=== PATIENT | female | born 2000 | race Caucasian/White ===

== ENCOUNTER → 2020-11-15 12:50 | Outpatient (BNVA) | payer MEDICAID, SELFPAY | PROVIDERS: Family Provider Family Medicine; PCP Family Medicine; Visit Provider Obstetrics & Gynecology | DX: O23.40 Unspecified infection of urinary tract in pregnancy, unspecified trimester (principal); Z3A.00 Weeks of gestation of pregnancy not specified | CPT/HCPCS: 80307; 84315; 85025; 86803; 87086 ==

== ENCOUNTER → 2020-11-28 08:32 | Outpatient (BNVA) | payer MEDICAID, SELFPAY | PROVIDERS: Family Provider Family Medicine; PCP Family Medicine; Visit Provider Obstetrics & Gynecology | DX: Z34.90 Encounter for supervision of normal pregnancy, unspecified, unspecified trimester (principal); K21.9 Gastro-esophageal reflux disease without esophagitis | CPT/HCPCS: 81000 ==

== ENCOUNTER → 2020-12-13 12:41 | Outpatient (BNVA) | payer MEDICAID, SELFPAY | PROVIDERS: Family Provider Family Medicine; PCP Family Medicine; Visit Provider Obstetrics & Gynecology | DX: Z34.90 Encounter for supervision of normal pregnancy, unspecified, unspecified trimester (principal) | CPT/HCPCS: 81000 ==

== ENCOUNTER → 2021-01-09 08:23 | Outpatient (BNVA) | payer MEDICAID, SELFPAY | PROVIDERS: Family Provider Family Medicine; PCP Family Medicine; Visit Provider Obstetrics & Gynecology | DX: Z34.80 Encounter for supervision of other normal pregnancy, unspecified trimester (principal) | CPT/HCPCS: 81000; 81511; 82950 ==

== ENCOUNTER → 2021-02-05 09:17 | Outpatient (BNVA) | payer MEDICAID, SELFPAY | PROVIDERS: Family Provider Family Medicine; PCP Family Medicine; Visit Provider Obstetrics & Gynecology | DX: Z34.80 Encounter for supervision of other normal pregnancy, unspecified trimester (principal) | CPT/HCPCS: 81000 ==

== ENCOUNTER → 2021-03-09 11:18 | Outpatient (BNVA) | payer MEDICAID, SELFPAY | PROVIDERS: Family Provider Family Medicine; PCP Family Medicine; Visit Provider Obstetrics & Gynecology | DX: Z34.80 Encounter for supervision of other normal pregnancy, unspecified trimester (principal) | CPT/HCPCS: 81000; 82950; 85025; 86850 ==

== ENCOUNTER → 2021-03-22 08:20 | Outpatient (BNVA) | payer MEDICAID, SELFPAY | PROVIDERS: Family Provider Family Medicine; PCP Family Medicine; Visit Provider Obstetrics & Gynecology | DX: O23.40 Unspecified infection of urinary tract in pregnancy, unspecified trimester (principal); O99.321 Drug use complicating pregnancy, first trimester; F19.90 Other psychoactive substance use, unspecified, uncomplicated; Z3A.00 Weeks of gestation of pregnancy not specified | CPT/HCPCS: 81000 ==

== ENCOUNTER → 2021-04-03 08:19 | Outpatient (BNVA) | payer MEDICAID, SELFPAY | PROVIDERS: Family Provider Family Medicine; PCP Family Medicine; Visit Provider Obstetrics & Gynecology | DX: Z34.80 Encounter for supervision of other normal pregnancy, unspecified trimester (principal) | CPT/HCPCS: 81000 ==

== ENCOUNTER → 2021-04-17 13:05 | Outpatient (BNVA) | payer MEDICAID, SELFPAY | PROVIDERS: Family Provider Family Medicine; PCP Family Medicine; Visit Provider Nurse Practitioner Women's Health | DX: Z34.80 Encounter for supervision of other normal pregnancy, unspecified trimester (principal) | CPT/HCPCS: 81000 ==

== ENCOUNTER → 2021-04-30 09:28 | Outpatient (BNVA) | payer MEDICAID, SELFPAY | PROVIDERS: Family Provider Family Medicine; PCP Family Medicine; Visit Provider Obstetrics & Gynecology | DX: Z34.80 Encounter for supervision of other normal pregnancy, unspecified trimester (principal) | CPT/HCPCS: 81000; 87081 ==

== ENCOUNTER → 2021-05-07 10:16 | Outpatient (BNVA) | payer MEDICAID, SELFPAY | PROVIDERS: Family Provider Family Medicine; PCP Family Medicine; Visit Provider Obstetrics & Gynecology | DX: Z34.80 Encounter for supervision of other normal pregnancy, unspecified trimester (principal) | CPT/HCPCS: 81000 ==

== ENCOUNTER → 2021-05-14 09:24 | Outpatient (BNVA) | payer MEDICAID, SELFPAY | PROVIDERS: PCP Family Medicine; Visit Provider Obstetrics & Gynecology | DX: Z34.80 Encounter for supervision of other normal pregnancy, unspecified trimester (principal) | CPT/HCPCS: 81000 ==

== ENCOUNTER → 2021-05-17 08:42 | Outpatient (BNVA) | payer MEDICAID, SELFPAY | PROVIDERS: PCP Family Medicine; Visit Provider Obstetrics & Gynecology | DX: Z34.80 Encounter for supervision of other normal pregnancy, unspecified trimester (principal) | CPT/HCPCS: 87635 ==

== ENCOUNTER 2021-05-24 05:17 | Inpatient (IN) | payer MEDICAID, SELFPAY ==
[2021-05-24] VITALS (88 sets, daily range): BP systolic 106–216; BP diastolic 58–141; PULSE 75–151; RESP 16–20; TEMP 36.5–39.4; O2SAT 95–100; BMI 39.1
[2021-05-24 05:53] LABS: Basophils % 0.2 %; Eosinophils % 0.2 %; Hematocrit 37.4 % (37.0-47.0); Hemoglobin 11.9 g/dL (11.5-15.3); Lymphocytes # 2.5 10^3/uL (1.5-6.5); Lymphocytes % 26.6 %; Mean Corpuscular HGB Conc 31.8 g/dL (30.0-36.0); Mean Corpuscular Hemoglobin 27.5 pg (28.0-34.0); Mean Corpuscular Volume 86.6 fl (81-99); Monocytes # 0.6 10^3/uL (0.2-0.9); Monocytes % 6.8 %; Neutrophils # 6.11 10^3/uL (1.8-8.0); Neutrophils % 65.9 %; Nucleated Red Blood Cells % 0 %; Platelet Count 115 10^3/cmm (130-400); Red Blood Count 4.32 10^6/uL (4.1-5.3); Red Cell Distribution Width 13.8 % (12.1-15.1); White Blood Count 9.3 10^3/uL (4.5-13.0)
[2021-05-24 05:57] LABS: Nitrazine Paper, PH Positive
[2021-05-24 06:02] LABS: Amphetamines Screen Urine Negative (Negative); Barbiturates Screen Urine Negative (Negative); Benzodiazepines Screen Urine Negative (Negative); Cocaine Screen Urine Negative (Negative); Opiate Screen Urine Negative (Negative); PCP Screen Urine Negative (Negative); THC Screen Urine Negative (Negative)
[2021-05-24] MEDS: dextrose 5%-lactated ringers 1,000 ML 125 ML IV ×2 (11:02→19:45)
[2021-05-24] MEDS: oxytocin 30 UNIT/500 ML BAG IV (11:02)
--- NOTE | 2021-05-24 11:20 | PM.OPHPUD ---
Labor & Delivery H&P Update Date of Procedure: May 24, 2021 Date H&P Performed: 05/14/21 H&P update information: I have reviewed H&P completed within last 30 days, I have examined patient prior to procedure and Changes to prior documentation as noted here (Premature rupture of membranes) Admission Diagnosis:
[2021-05-24] MEDS: fentaNYL 50 mcg/mL INJ 2mL IVP (13:17)
[2021-05-24] MEDS: lactated ringers 1,000 ML 999 ML IV ×2 (13:19→14:18)
--- NOTE | 2021-05-24 14:28 | ANES.PROC ---
Anesthesia Procedures Procedure/Date: 05/24/21 Epidural: Time Out Performed: Yes Consents Signed: Procedure Consent and NPO Consent Consent: requested by attending/covering physician, from patient, risks and benefits reviewed and patient agrees to proceed Lumbar Level: L3-L4 Epidural position: sitting Epidural procedure: sterile prep of area, 1% lidocaine to numb the area, 18 g needle, negative for paresthesia passed, neg for paresthesia, test dose given, 1.5% xylocaine 1:200k epi (3), 0.2% Ropivacaine bolus ml (5), placed PCEA, no systemic response, sterile dressing applied, L.U.D. no apparent complications and 0.2% Ropiavacaine @ mls/hr (13) Additional Comments: SANDIE at 5 cm, threaded to 11 cm. Patient reported decreasing intensity of contraction, foot numbness (L > R).
[2021-05-24] MEDS: methylergonovine 0.2 mg/mL INJ 1 mL IM (18:32)
[2021-05-24] MEDS: miSOPROStol 200 mcg Tablet 800 MCG PR (18:32)
[2021-05-24] MEDS: lidocaine 2% INJ 20 mL INJECTION (18:33)
[2021-05-24] MEDS: ondansetron 2 mg/ML SDV 2 mL 4 MG IVP (18:57)
--- NOTE | 2021-05-24 19:08 | P.PCNOB_ITS ---
Delivery Note: Date of delivery: May 24, 2021 Pre-delivery diagnoses: PROM at 39 3/7 weeks Post-delivery diagnoses: same Procedure: Op report anesthesia: Epidural Delivering Physician: noé Estimated blood loss (mL): 200 Findings: term female in the cephalic presentation. Pre-Delivery Course: The patient was admitted for PROM. Pitocin was started and reached a maximum of 16 units. She received an epidural for pain management. She had complete cervical dilation and began pushing. Delivery: The patient had complete cervical dilation and began to push. The head delivered in the CONNOR position over an intact perineum under epidural anesthesia. A single nuchal cord was reduced at the perineum. The nose and mouth were bulb suctioned. The shoulders and body delivered atraumatically. The baby was placed onto the mother's abdomen. The cord was clamped and cut. Cord blood was obtained. The placenta delivered spontaneously. It was inspected and found to be intact. Inspection of the perineum revealed a large left periurethral laceration. And a small midline vaginal laceration that was hemostatic. The patient had uterine atony. 800 mcg of Cytotec were given orally. TXA was given. 1 dose of Methergine was given. The uterine atony resolved and the bleeding was scant after this. Estimated blood loss 200 mL. Apgars on baby were 8 at 1 minute and 9 at 5 minutes. Weight of baby is 7 pounds 10 ounces. Mother and baby were stable post delivery. Coding Level of Care Code Acute Mud Analysis Well Logging Captain for Rhea Anaya
[2021-05-24] MEDS: acetaminophen 325 mg Tablet 650 MG PO (19:38)
[2021-05-24] MEDS: ibuprofen 800 mg tablet PO (20:40)
[2021-05-25] VITALS (11 sets, daily range): BP systolic 122–142; BP diastolic 59–93; PULSE 83–108; RESP 15–17; TEMP 36.2–36.9
[2021-05-25 08:10] LABS: Hematocrit 30.3 % (37.0-47.0); Hemoglobin 9.7 g/dL (11.5-15.3); Mean Corpuscular Hemoglobin 27.7 pg (28.0-34.0); Mean Corpuscular Volume 86.6 fl (81-99); Platelet Count 106 10^3/cmm (130-400); Red Cell Distribution Width 13.6 % (12.1-15.1); White Blood Count 9.5 10^3/uL (4.5-13.0)
[2021-05-25] MEDS: ibuprofen 800 mg tablet PO ×3 (08:43→22:19)
[2021-05-25] MEDS: prenatal vitamin Capsule 1 CAP PO (08:43)
--- NOTE | 2021-05-25 09:43 | P.PN_ITS ---
Subjective Subjective: Interval history: The patient is doing well this am. Vitals/I&O/Wt Last Vital Signs Temp 97.2 F L 05/25/21 04:13 Pulse 96 05/25/21 08:42 Resp 17 05/25/21 05:17 BP 130/70 05/25/21 08:42 Pulse Ox 100 05/24/21 14:54 05/24/21 05/25/21 05/25/21 22:59 06:59 14:59 Intake Total 544.533 / 2367.450 1500 / 3867.450 Output Total 500 / 500 300 / 800 Balance 44.533 / 5795.012 2751 / 3067.450 Weight last 48 hrs Weight 235 lb Physical Exam Narrative: EXAM NARRATIVE: The patient is doing well this morning. No concerns. Const: COMMON NORMALS: no acute distress, patient oriented x3, no limitations, healthy appearing, alert and well nourished GENERAL APPEARANCE: cooperative, comfortable, well kempt and well developed ORIENTATION/CONSCIOUSNESS: Yes awake, Yes oriented to person, Yes oriented to place and Yes oriented to time Resp: COMMON NORMALS: normal respiratory effort EFFORT & INSPECTION: Yes able to speak in complete sentences GI: COMMON NORMALS: Soft to palpation and non-tender PALPATION: Yes Soft to palpation Extremity: COMMON NORMALS: no clubbing, cyanosis or edema and no calf tenderness Neuro: COMMON NORMALS: patient oriented x3 SENSORIUM/ORIENTATION: Yes alert, Yes oriented to person, Yes oriented to place and Yes oriented to time Psych: APPEARANCE: Yes well kempt Urinary Catheter Management^: Pina: Cath Placed During This Visit: yes, but has since been removed by the nurse Reason for Continuing Indwelling Catheter: Decision to DC Catheter Urinary Catheter Date of Insertion: 05/24/21 Urinary Catheter Time of Insertion: 14:55 Date Urinary Catheter Removed: 05/24/21 Time Urinary Catheter Discontinued: 17:00 Data : 05/25/21 07:57 Attestations Medical Necessity Statement*: she will be here for two midnights Coding Level of Care Code Acute Chemical Engraver for Rhea Anaya
[2021-05-26 01:35] VITALS: BP 123/84; PULSE 116; RESP 18; TEMP 36.8
[2021-05-26 03:00] VITALS: BP 115/80; PULSE 85; RESP 16; TEMP 36.6; TEMP 36.7; O2SAT 98
[2021-05-26 05:18] VITALS: BP 114/78; PULSE 85; RESP 16; TEMP 36.6; O2SAT 99
--- NOTE | 2021-05-26 06:40 | PM.DCS ---
Discharge Providers Date of Admission: 05/24/21 05:17 Date of Discharge: May 26, 2021 Attending Provider at Admission: Jhon Mahajan MD Attending Provider at Discharge: Caity Driscoll MD Primary Care Provider: Ida Edge DO Diagnoses at Discharge Discharge Diagnosis (1) state: Status: Acute Reason for Visit Reason for Visit: poss SROM Hospital Course Hospital Course The patient was admitted with PROM. Pitocin was started. She had spontaneous delivery of a term . She did well and was ready for discharge on day #2 Physical Exam Urinary Catheter Management^: Pina: Cath Placed During This Visit: yes, but has since been removed by the nurse Reason for Continuing Indwelling Catheter: Decision to DC Catheter Urinary Catheter Date of Insertion: 05/24/21 Urinary Catheter Time of Insertion: 14:55 Date Urinary Catheter Removed: 05/24/21 Time Urinary Catheter Discontinued: 17:00 Discharge Data Data Completed and Pending: Labs from last 24 hours 05/25/21 07:57 WBC 9.5 RBC 3.50 L Hgb 9.7 L Hct 30.3 L MCV 86.6 MCH 27.7 L MCHC 32.0 RDW 13.6 Plt Count 106 L MPV 13.0 H Vitals: Last Vital Signs Temp 97.8 F 05/26/21 05:18 Pulse 85 05/26/21 05:18 Resp 16 05/26/21 05:18 BP 114/78 05/26/21 05:18 Pulse Ox 99 05/26/21 05:18 Discharge Plan Discharge Patient Disposition: Home Condition: Stable Prescriptions: Continued Gummies 400 mcg-35 mg- 25 mg-5 mg tablet,chewable 1 tab PO DAILY RF: 0 docusate sodium [Colace] 100 mg capsule 100 mg PO DAILY RF: 0 famotidine [Pepcid] 40 mg tablet 40 mg PO .h.s. RF: 0 Discharge Orders: Discharge Order (Routine); Ordered 05/26/21 Ordered By: Caity Driscoll Patient Instructions: Opioid Safety Discharge Attestations Time Spent in Discharge Care*: less than 30 min Quality Metrics Clinical Quality Measures During this hospital stay, did patient experience: None Coding Level of Care Code Acute Chg FW DC note Diagnoses state Z39.2
[2021-05-26] MEDS: prenatal vitamin Capsule 1 CAP PO (08:51)
[2021-05-26] MEDS: docusate sodium 100 mg Capsule PO (08:51)
[2021-05-26] MEDS: ibuprofen 800 mg tablet PO (08:52)
[2021-05-26 10:54] VITALS: BP 121/81; PULSE 102; RESP 17; TEMP 36.9; O2SAT 99
--- NOTE | 2021-05-28 08:17 | ANE.PACU2 ---
Inpatient post-anesthesia follow up: Airway intact: Yes Vital signs: Temperature 98.4 F Pulse Rate 102 Respiratory Rate 17 Blood Pressure 121/81 Pulse Oximetry 99 Oxygen Delivery Me thod Room Air Oxygen Flow Rate Fraction of Inspir ed Oxygen Hydration adequate: Yes Nausea and vomiting: No Pain level: 2 Mental status: Baseline
== END 2021-05-26 12:09 | disposition home or self-care (01) | DRG 768 ==
LOC: OPOB 05:19 → OBGYN 05:19
PROVIDERS: Obstetrics & Gynecology; Admitting Provider Obstetrics & Gynecology; PCP Family Medicine; Visit Provider Obstetrics & Gynecology
DX: O42.92 Full-term premature rupture of membranes, unspecified as to length of time between rupture and onset of labor (principal); Z37.0 Single live birth; O71.4 Obstetric high vaginal laceration alone; O62.2 Other uterine inertia; O69.81X0 Labor and delivery complicated by cord around neck, without compression, not applicable or unspecified; Z3A.39 39 weeks gestation of pregnancy
CPT/HCPCS: 36415; 51702; 59025; 59409; 80306; 83986; 85025; 85027; 86900; 96372; 96374; 96375; 98960; 99211; J2210; J2405; J2795; J3010

== ENCOUNTER → 2021-07-27 10:48 | Outpatient (BNVA) | payer MEDICAID, SELFPAY | PROVIDERS: PCP Family Medicine; Visit Provider Obstetrics & Gynecology | DX: R39.9 Unspecified symptoms and signs involving the genitourinary system (principal); N89.8 Other specified noninflammatory disorders of vagina | CPT/HCPCS: 81000; 87086; 87481; 87512; 87798; 87799 ==

== ENCOUNTER → 2021-11-05 10:34 | Outpatient (BNVA) | payer MEDICAID, SELFPAY | PROVIDERS: PCP Family Medicine; Visit Provider Obstetrics & Gynecology | DX: Z12.4 Encounter for screening for malignant neoplasm of cervix (principal) | CPT/HCPCS: 88175 ==

== ENCOUNTER → 2022-06-24 13:34 | Outpatient (BNVA) | payer MEDICAID, SELFPAY | PROVIDERS: PCP Family Medicine; Visit Provider Family Medicine | DX: L73.2 Hidradenitis suppurativa (principal); Z23 Encounter for immunization | CPT/HCPCS: 80048 ==

== ENCOUNTER → 2022-09-10 17:37 | Outpatient (BNVA) | payer MEDICAID, SELFPAY | PROVIDERS: PCP Family Medicine; Visit Provider Registered Nurse Neonatal Intensive Care | DX: N39.0 Urinary tract infection, site not specified (principal); R39.9 Unspecified symptoms and signs involving the genitourinary system; Z20.2 Contact with and (suspected) exposure to infections with a predominantly sexual mode of transmission | CPT/HCPCS: 81000; 87086; 87491; 87591; 87661 ==

== ENCOUNTER → 2022-09-27 11:31 | Outpatient (BNVA) | payer MEDICAID, SELFPAY | PROVIDERS: PCP Family Medicine; Visit Provider Family Medicine | DX: L73.2 Hidradenitis suppurativa (principal) | CPT/HCPCS: 80048 ==

== ENCOUNTER → 2023-03-07 10:10 | Outpatient (BNVA) | payer MEDICAID, SELFPAY | PROVIDERS: PCP Family Medicine; Visit Provider Obstetrics & Gynecology | DX: N39.0 Urinary tract infection, site not specified (principal); R82.90 Unspecified abnormal findings in urine | CPT/HCPCS: 81000; 87086 ==

== ENCOUNTER → 2023-03-27 16:02 | Outpatient (BNVA) | payer MEDICAID, SELFPAY | PROVIDERS: PCP Family Medicine; Visit Provider Obstetrics & Gynecology | DX: L73.2 Hidradenitis suppurativa (principal) | CPT/HCPCS: 80048 ==

== ENCOUNTER → 2023-06-16 14:30 | Outpatient (BNVA) | payer MEDICAID, SELFPAY | PROVIDERS: PCP Family Medicine; Visit Provider Nurse Practitioner Women's Health | DX: N93.9 Abnormal uterine and vaginal bleeding, unspecified (principal); Z30.9 Encounter for contraceptive management, unspecified | CPT/HCPCS: 88175 ==

== ENCOUNTER → 2024-02-19 08:44 | Outpatient (BNVA) | payer SELFPAY | PROVIDERS: PCP Family Medicine; Visit Provider Nurse Practitioner Family | DX: R31.9 Hematuria, unspecified (principal) | CPT/HCPCS: 81000 ==

== ENCOUNTER 2024-02-23 13:55 | Emergency (ER) | payer SELFPAY ==
[2024-02-23 14:02] VITALS: BP 128/88; PULSE 110; RESP 16; TEMP 36.7; O2SAT 99
[2024-02-23 14:48] LABS: Basophils % 0.3 %; Eosinophils % 0.1 %; Hematocrit 43.9 % (36-47); Lymphocytes # 1.8 10^3/uL (0.8-4.8); Lymphocytes % 26.5 %; Mean Corpuscular Hemoglobin 28.7 pg (27-33); Mean Corpuscular Volume 86.8 fl (85-98); Monocytes # 0.3 10^3/uL (0.2-0.9); Monocytes % 4.9 %; Neutrophils # 4.55 10^3/uL (1.8-7.7); Neutrophils % 68.1 %; Nucleated Red Blood Cells % 0 %; Platelet Count 167 10^3/cmm (157-399); Red Blood Count 5.06 10^6/uL (3.85-5.65); Red Cell Distribution Width 12.6 % (12.1-15.1); White Blood Count 6.69 10^3/uL (3.29-11.43)
[2024-02-23 15:03] LABS: HCG Quantitative 58.52 mIU/mL
[2024-02-23 15:14] LABS: Alanine Aminotransferase 15 U/L (0-33); Albumin Level 4.6 g/dL (3.5-5.2); Alkaline Phosphatase 80 U/L (35-105); Anion Gap 14.2 (5-19); Aspartate Amino Transferase 27 U/L (0-32); Blood Urea Nitrogen 15 mg/dL (6-20); Calcium 9.4 mg/dL (8.5-10.5); Carbon Dioxide 27 mmol/L (22-29); Chloride 101 mmol/L (98-107); Creatinine Clr Calc Pharmacy 131.9267; Globulin 3.1 g/dL (1.3-4.6); Glomerular Filtration Rate 103.7 mL/min (90-130); Glucose 91 mg/dL (65-115); Osmolality Calculated 286 mOsm/kg (285-295); Potassium 4.2 mmol/L (3.5-5.1); Sodium 138 mmol/L (136-145); Total Bilirubin 0.3 mg/dL (0.15-1.2); Total Protein 7.7 g/dL (6.6-8.7)
[2024-02-23 17:10] VITALS: BP 117/83; PULSE 97; RESP 16; O2SAT 97
--- NOTE | 2024-02-23 17:10 | USR_ITS ---
PROCEDURE INFORMATION: Exam: US , Transvaginal Exam date and time: 02/23/2024 5:16 PM Age: 23 years old Clinical indication: Lmp or gestational age (in weeks): Na; Other: Positive preg test; Patient HX: Hcg quant unknown as of exam time; Additional info: Rlq pain, 2-3 weeks preg by [facility] LABS AND CLINICAL REPORTS: Last menstrual period start date: 01/30/2024 Estimated due date (Established): 11/05/2024 TECHNIQUE: Imaging protocol: Real-time transvaginal obstetrical ultrasound of the maternal pelvis with image documentation. Transvaginal imaging was used for better evaluation of the fetus, adnexa, and/or cervix. COMPARISON: US OB follow up [facility] 05/07/2021 10:15 AM FINDINGS: Gestation: The uterus is normal in size and appearance. There is no evidence of intrauterine . Endometrial stripe measures 8 mm. MATERNAL: Right ovary/adnexa: A 1.8 cm simple cyst involves the right ovary. Good Doppler flow noted. Left ovary/adnexa: The left ovary is normal in size and appearance. Good Doppler flow noted. US/US OB transvaginal [id number] IMPRESSION: 1. No evidence of 2. Small right ovarian cyst
--- NOTE | 2024-02-23 17:10 | ED_ITS ---
HPI - 2 General: Chief complaint: Vaginal Bleeding Stated complaint: vaginal bleeding, right side pain, 2 weeks preg Time Seen by Provider: 02/23/24 17:00 Source: patient Mode of arrival: ambulatory Limitations: no limitations History of Present Illness: Patient is a 23-year-old female presenting to the emergency department complaining of vaginal bleeding onset 3-4 days. Patient noticed the bleeding at the end of last week, went to the urgent care and states that she was sent home and told she was fine. She states she took a home test which was positive, and later this was confirmed at the health department by another test. The bleeding has been constant since she noticed it, and she is starting to develop some right-sided/suprapubic abdominal pain. This is her third , and she is A1. She states that the health department sent her to the emergency department to rule out an ectopic . She has no history of ectopic. She is not reporting any other symptoms at this time, which includes no palpitations, syncope, nausea, or vomiting. She notes that the pain is overall intermittent, though it will come in waves of varying pain. She comments that the pains feel like labor pain. She does not report any specific exacerbating factor, but does state that the pain will improve when she sits up. She does still have her appendix. She states that the bleeding has been constant, but overall has been in small quantities and will vary from bright red to dark red/black. MD Complaint: abdominal pain and vaginal bleeding Onset (ago): day(s) Pain Consistency: intermittent Location: pelvis and abdomen Severity: moderate Quality: Cramping Relieving factors: other (Sitting up) Exacerbating factors: none Vaginal discharge: none Vaginal bleeding: light Patient : Yes Number of Weeks : 2-3 OB History - Previous Pregnancies: miscarriage care: none Associated symptoms: Reports abdominal pain; Deny dysuria, headache(s), nausea, vaginal discharge or vomiting Related Data: : 3 Para: 1 Total number of abortions (spontaneous and elective): 1 Review of Systems 2 General: Reports: 10 or more systems reviewed and unremarkable except in HPI and below Const: Denies: fever(s), chills, change in appetite, change in weight or diaphoresis ENMT: Denies: throat pain or hoarseness Card: Denies: chest pain, palpitations or lightheadedness Resp: Denies: dyspnea, productive cough or wheezing GI: Reports: abdominal pain; Denies: nausea, vomiting, diarrhea, constipation, bloating, change in stool character or hematochezia : Reports: vaginal bleeding and other (); Denies: flank pain, difficulty voiding, dysuria, urinary frequency, urinary urgency, hematuria or vaginal discharge Musc: Denies: neck pain or back pain Skin/Breast: Denies: rash or new lesions Neuro: Denies: headache(s) or dizziness PFSH ED 2 PFSH: Medical History No pertinent past medical history neghx: htn,dm,thyroid,dvt/pe,herpes ---denies partner with herpes PCP: none Surgical History No pertinent past surgical history Family History Grandmother Breast cancer Paternal--dx age unknown Denies family history of Colon cancer Ovarian cancer Diabetes Heart disease Hypercholesteremia Hypertension Uterine cancer Thyroid disease Stroke Social History Substance/Drug Use: never Female Reproductive History: : 3 Physical Exam 2 Const: COMMON NORMALS: no acute distress, average body habitus, patient oriented x3, no limitations, healthy appearing, alert and well nourished G ENERAL APPEARANCE: cooperative and comfortable ORIENTATION/CONSCIOUSNESS: Yes awake HENMT: COMMON NORMALS: normocephalic, atraumatic, hearing grossly normal bilaterally, external ears normal, Normal external nose present, Normal nasal mucous membranes and turbinates present and moist oral mucous membranes HEAD & SCALP: normocephalic and atraumatic NOSE: Normal external nose present and Normal nasal mucous membranes and turbinates present EXTERNAL EAR: Yes external ears normal Eye: COMMON NORMALS: Equal, round and reactive pupils present, EOMs intact bilaterally, conjunctivae normal and normal visual kurtz by confrontation C ONJUNCTIVA: Yes conjunctivae normal PUPIL: Yes Equal, round and reactive pupils present Neck/C-Spine: COMMON NORMALS: full ROM, supple, no meningeal signs and no JVD Resp: COMMON NORMALS: normal respiratory effort, No retractions, No use of accessory muscles and clear to auscultation bilaterally AUSCULTATION: clear to auscultation bilaterally, no crackles, no rales, no rhonchi and no wheezes Cardio: COMMON NORMALS: no JVD, regular rate, regular rhythm, S1 normal heart sound present, S2 normal heart sound present, No gallops present (Cardio), No clicks present (Cardio), No murmurs present (Cardio), No rub (Cardio) and Peripheral pulses 2+ throughout RATE: regular rate RHYTHM: regular rhythm HEART SOUNDS: S1 normal heart sound present and S2 normal heart sound present PERIPHERAL PULSES: Peripheral pulses 2+ throughout GI: COMMON NORMALS: Normal to inspection, nondistended, normoactive bowel sounds present, Soft to palpation, No hepatosplenomegaly present and no masses INSPECTION: Yes normal to inspection AUSCULTATION: Yes normoactive bowel sounds PALPATION: Yes Soft to palpation, Yes Tenderness to palpation present (GI) (Mild tenderness to palpation over the right lower/suprapubic region), No Guarding due to palpation present (GI), No Rigid due to palpation and Yes No hepatosplenomegaly present RECTAL EXAM: deferred : COMMON NORMALS: Yes no CVA tenderness BLADDER/KIDNEY EXAM: Yes no CVA tenderness Back/Pelvis: COMMON NORMALS: no CVA tenderness Extremity: COMMON NORMALS: normal to inspection and full ROM Neuro: COMMON NORMALS: patient oriented x3, moves all extremities, no focal motor deficits and no sensory deficits noted SENSORIUM/ORIENTATION: Yes alert MENINGEAL SIGNS: Yes no meningeal signs Psych: COMMON NORMALS: mental status grossly normal, cooperative and speech normal SPEECH: Yes normal speech Skin: COMMON NORMALS: no rashes or lesions noted GENERAL SKIN EXAM: no rashes or lesions noted Procedures Perimortem Number of Weeks : 2-3 Course 2 Vital Signs: Vital signs: Vital Signs Temperature 98.0 F 02/23/24 14:02 Pulse Rate 90 02/23/24 18:00 Respiratory Rate 16 02/23/24 17:10 Blood Pressure 117/83 02/23/24 17:10 Pulse Oximetry 95 02/23/24 18:00 Oxygen Delivery Me thod Room Air 02/23/24 18:00 MDM - OB/Uterine Contractions Medical Decision Making Patient presents for few days of vaginal bleeding associated with some new onset of pain. She states she is positive by confirmed home test, and positive test at health department. Here in the emergency department she does have a serum quantitative value of 58, correlating with 2 to 3 weeks of gestation. To rule out ectopic a transvaginal ultrasound was ordered that did not demonstrate any signs of this, and gestational age too early for any evaluation. Due to very low hCG and negative ultrasound findings, ectopic suspicion is very low at this point. All of her blood work was normal and her urinalysis was unremarkable, did show some blood likely from patient's vaginal bleeding. She is clinically stable and thus no need for further workup. The emergency department. Instead, she will follow-up with her OB/primary care next week for reevaluation. I did inform patient's of strict return precautions including any worsening of her bleeding or worsening of abdominal pain. She agrees with this and will be discharged home at this time. Care of this patient is discussed with supervising ED physician, Dr. Reynoso, who agrees with disposition of patient. Lab Data 02/23/24 14:29 02/23/24 14:29 Radiology Impressions Transvaginal US 02/23/24 17:10 IMPRESSION: 1. No evidence of 2. Small right ovarian cyst Laboratory Results WBC 6.69 10^3/uL (3.29-11.43) 02/23/24 14:29 RBC 5.06 10^6/uL (3.85-5.65) 02/23/24 14:29 Hgb 14.50 g/dL (11.27-16.99) 02/23/24 14:29 Hct 43.9 % (36-47) 02/23/24 14:29 MCV 86.8 fl (85-98) 02/23/24 14:29 MCH 28.7 pg (27-33) 02/23/24 14:29 MCHC 33.0 g/dL (30-55) 02/23/24 14:29 RDW 12.6 % (12.1-15.1) 02/23/24 14:29 Plt Count 167 10^3/cmm (157-399) 02/23/24 14:29 MPV 12.0 fL (7.4-10.4) H 02/23/24 14:29 Neut % (Auto) 68.1 % 02/23/24 14:29 Lymph % (Auto) 26.5 % 02/23/24 14:29 Wise % (Auto) 4.9 % 02/23/24 14:29 Eos % (Auto) 0.1 % 02/23/24 14:29 Baso % (Auto) 0.3 % 02/23/24 14:29 Neut # (Auto) 4.55 10^3/uL (1.8-7.7) 02/23/24 14:29 Lymph # (Auto) 1.8 10^3/uL (0.8-4.8) 02/23/24 14:29 Wise # (Auto) 0.3 10^3/uL (0.2-0.9) 02/23/24 14: Eos # (Auto) 0.0 10^3/uL (0.0-0.8) 02/23/24 14: Baso # (Auto) 0.0 10^3/uL (0.0-0.1) 02/23/24 14:29 Nucleated RBC % (auto) 0 % 02/23/24 14: Nucleated RBCs # 0.0 /100WBC 02/23/24 14:29 Sodium 138 mmol/L (136-145) 02/23/24 14:29 Potassium 4.2 mmol/L (3.5-5.1) 02/23/24 14:29 Chloride 101 mmol/L (98-107) 02/23/24 14:29 Carbon Dioxide 27 mmol/L (22-29) 02/23/24 14:29 Anion Gap 14.2 (5-19) 02/23/24 14:29 BUN 15 mg/dL (6-20) 02/23/24 14:29 Creatinine 0.7 mg/dL (0.5-0.9) 02/23/24 14:29 GFR Calculation 103.7 mL/min (90-130) 02/23/24 14:29 Glucose 91 mg/dL (65-115) 02/23/24 14:29 Calculated Osmolality 286 mOsm/kg (285-295) 02/23/24 14:29 Calcium 9.4 mg/dL (8.5-10.5) 02/23/24 14:29 Total Bilirubin 0.3 mg/dL (0.15-1.2) 02/23/24 14:29 AST 27 U/L (0-32) 02/23/24 14:29 ALT 15 U/L (0-33) 02/23/24 14:29 Alkaline Phosphatase 80 U/L (35-105) 02/23/24 14:29 C-Reactive Protein 3.5 mg/L (0.0-4.9) 02/23/24 14:29 Total Protein 7.7 g/dL (6.6-8.7) 02/23/24 14: Albumin 4.6 g/dL (3.5-5.2) 02/23/24 14: Globulin 3.1 g/dL (1.3-4.6) 02/23/24 14:29 Ser , Semi-Qnt 58.52 mIU/mL 02/23/24 14:29 Urine Color Yellow (Yellow) 02/23/24 15:35 Urine Appearance Slightly cloudy (CLEAR) 02/23/24 15:35 Urine pH 7 (5-7) 02/23/24 15:35 Ur Specific [place]iman 1.015 (1.005-1.030) 02/23/24 15:35 Urine Protein Neg (Negative) 02/23/24 15:35 Urine Glucose (UA) Norm (Normal) 02/23/24 15:35 Urine Ketones Negative (Negative) 02/23/24 15:35 Urine Blood 3+ (Negative) H 02/23/24 15:35 Urine Nitrate Negative (Negative) 02/23/24 15:35 Urine Bilirubin Neg (Negative) 02/23/24 15:35 Urine Urobilinogen Norm mg/dL (Negative) 02/23/24 15:35 Ur Leukocyte Esterase Negative (Negative) 02/23/24 15:35 Urine RBC 0-4 /hpf (0-2) H 02/23/24 15:35 Urine WBC 0-4 /hpf (0-5) H 02/23/24 15:35 Ur Squamous Epith Cells 10-15 /hpf (0-5) H 02/23/24 15:35 Amorphous Sediment 1+ /hpf 02/23/24 15:35 Urine Bacteria 1+ /hpf (NONE) H 02/23/24 15:35 All radiology interpretation(s) finalized by discharge Discharge Plan Discharge Condition: Stable Prescriptions: No Action fluconazole 150 mg tablet 150 mg PO Q3D 0 Days Qty: 2 0RF famotidine [Pepcid] 40 mg tablet 40 mg PO .h.s. Qty: 30 12RF spironolactone 100 mg tablet 100 mg PO QAM Qty: 90 1RF Referrals: Ida Edge DO [Primary Care Provider] - Coding Level of Care Code ED Central Office Equipment Installer for Rhea Anaya
[2024-02-23 17:36] LABS: C Reactive Protein 3.5 mg/L (0.0-4.9)
[2024-02-23 17:46] LABS: Specific Gravity, Urine 1.015 (1.005-1.030); Urine Appearance Slightly Cloudy (CLEAR); Urine Color Yellow (Yellow); pH Urine 7 (5-7)
[2024-02-23 17:47] LABS: Add Urine Culture? No; Add Urine Microscopic? YES; Amorphous Sediment Urine 1+ /hpf; Bacteria Urine 1+ /hpf; Bilirubin Urine Neg (Negative); Blood Urine 3+ (Negative); Glucose Urine UA Norm (Normal); Ketones Urine Negative (Negative); Leukocyte Esterase Urine Negative (Negative); Nitrate Urine Negative (Negative); Protein Urine Neg (Negative); RBC Urine 0-4 /hpf (0-2); Urobilinogen Urine Norm (Negative); WBC Urine 0-4 /hpf (0-5)
[2024-02-23 18:00] VITALS: PULSE 90; O2SAT 95
== END 2024-02-23 18:17 | disposition home or self-care (01) ==
PROVIDERS: Physician Assistant; Emergency Provider Physician Assistant; PCP Family Medicine
DX: O20.9 Hemorrhage in early pregnancy, unspecified (principal); Z3A.01 Less than 8 weeks gestation of pregnancy
CPT/HCPCS: 36415; 76817; 80053; 81001; 84702; 85025; 86140; 99284

== ENCOUNTER → 2024-02-25 09:11 | Outpatient (BNVA) | payer MEDICAID, SELFPAY | PROVIDERS: PCP Family Medicine; Visit Provider Nurse Practitioner Women's Health | DX: N73.0 Acute parametritis and pelvic cellulitis (principal); N92.1 Excessive and frequent menstruation with irregular cycle; Z97.5 Presence of (intrauterine) contraceptive device; O46.90 Antepartum hemorrhage, unspecified, unspecified trimester; O20.0 Threatened abortion | CPT/HCPCS: 84315; 84702; 85025; 86850; 86900 ==

== ENCOUNTER → 2024-03-01 08:03 | Outpatient (BNVA) | payer MEDICAID, SELFPAY | PROVIDERS: PCP Family Medicine; Visit Provider Nurse Practitioner Women's Health | DX: O20.0 Threatened abortion (principal); Z3A.00 Weeks of gestation of pregnancy not specified | CPT/HCPCS: 84702 ==

== ENCOUNTER → 2024-04-20 07:56 | Outpatient (BNVA) | payer MEDICAID, SELFPAY | PROVIDERS: PCP Family Medicine; Visit Provider Nurse Practitioner Women's Health | DX: Z34.90 Encounter for supervision of normal pregnancy, unspecified, unspecified trimester (principal); N92.6 Irregular menstruation, unspecified | CPT/HCPCS: 81025; 84702; 86850; 86900 ==

== ENCOUNTER → 2024-05-04 09:32 | Outpatient (BNVA) | payer BC, SELFPAY | PROVIDERS: Visit Provider Nurse Practitioner Women's Health | DX: Z36.87 Encounter for antenatal screening for uncertain dates (principal); Z3A.01 Less than 8 weeks gestation of pregnancy | CPT/HCPCS: 76801 ==

== ENCOUNTER → 2024-05-26 08:15 | Outpatient (BNVA) | payer BC, SELFPAY | PROVIDERS: Visit Provider Nurse Practitioner Women's Health | DX: Z34.90 Encounter for supervision of normal pregnancy, unspecified, unspecified trimester (principal) | CPT/HCPCS: 80307; 84315; 84439; 84443; 84481; 85025; 86592; 86762; 86803; 86850; 86900; 87086; 87340; 87491; 87591; 87806 ==

== ENCOUNTER → 2024-06-08 13:23 | Outpatient (BNVA) | payer BC, MEDICAID, SELFPAY | PROVIDERS: Visit Provider Obstetrics & Gynecology | DX: Z34.90 Encounter for supervision of normal pregnancy, unspecified, unspecified trimester (principal) | CPT/HCPCS: 84315; 87624 ==

== ENCOUNTER → 2024-07-05 08:20 | Outpatient (BNVA) | payer BC, MEDICAID, SELFPAY | PROVIDERS: Visit Provider Nurse Practitioner Women's Health | DX: Z34.90 Encounter for supervision of normal pregnancy, unspecified, unspecified trimester (principal); Z3A.11 11 weeks gestation of pregnancy; J02.9 Acute pharyngitis, unspecified | CPT/HCPCS: 80053; 82962; 84315; 85025; 87071; 87880 ==

== ENCOUNTER 2024-08-02 12:54 | Emergency (ER) | payer BC, MEDICAID, SELFPAY ==
[2024-08-02 13:10] VITALS: BP 118/75; PULSE 101; RESP 18; TEMP 36.7; O2SAT 97
--- NOTE | 2024-08-02 13:22 | ED_ITS ---
HPI - Skin/Abscess/Foreign Bdy General: Chief complaint: Skin/Abscess/Foreign Body Stated complaint: left hand burn Time Seen by Provider: 08/02/24 13:18 Related Data Home Medications Medication Instructions Recorded Confirmed PNV 153-FA 400 mcg-om3 35 mg-dha tab PO DAILY 05/26/24 07/05/24 25 mg-epa 5 mg-fish oil chew tablet ( Gummies) Previous Rx's Medication Instructions Recorded azithromycin 250 mg tablet See Rx Instructions PO .COMPLEX #6 07/05/24 (Zithromax Z-Javier) tabs Allergies Allergy/AdvReac Type Severity Reaction Status Date / Time Penicillins Allergy vomitting, Verified 07/05/24 18:11 sweating PFSH ED PFSH: Medical History No pertinent past medical history neghx: htn,dm,thyroid,dvt/pe,herpes ---denies partner with herpes PCP: none Surgical History No pertinent past surgical history Family History Grandmother Breast cancer Paternal--dx age unknown Denies family history of Colon cancer Ovarian cancer Diabetes Heart disease Hypercholesteremia Hypertension Uterine cancer Thyroid disease Stroke Social History Smoking and tobacco/nicotine status: tobacco/nicotine user, details unknown Substance/Drug Use: never Course Vital Signs: Vital signs: Vital Signs Temperature 98.1 F 08/02/24 13:10 Pulse Rate 101 H 08/02/24 13:10 Respiratory Rate 18 08/02/24 13:10 Blood Pressure 118/75 08/02/24 13:10 Pulse Oximetry 97 08/02/24 13:10 Oxygen Delivery Me thod Room Air 08/02/24 13:10 Discharge Plan Discharge Condition: Stable Prescriptions: No Action azithromycin [Zithromax Z-Javier] 250 mg tablet See Rx Instructions PO .COMPLEX Qty: 6 0RF Rx Instructions: For 250 mg dose pack: take 500 mg today (day 1), then 250 mg for 4 days (days 2-5) PO Gummies 400 mcg-35 mg- 25 mg-5 mg tablet,chewable PO DAILY Coding Level of Care Code ED Higher Level Teaching Assistant for Rhea Anaya
--- NOTE | 2024-08-02 13:33 | ED_ITS ---
HPI - Burn/Smoke Inhalation 2 General: Chief complaint: Skin/Abscess/Foreign Body Stated complaint: left hand burn Time Seen by Provider: 08/02/24 13:18 Source: patient Mode of arrival: ambulatory Limitations: no limitations History of Present Illness: Patient is a 24-year-old female presents to ED today with a complaint of a burn to her left hand that she sustained after pulling a hot skaggs from the oven. Tetanus is up-to-date. MD Complaint: burn Onset (ago): hour(s) Smoke Inhalation: none Place: home Location - Extremities: Left: hand Severity: mild Associated symptoms: Reports no associated symptoms Related Data Home Medications Medication Instructions Recorded Confirmed PNV 153-FA 400 mcg-om3 35 mg-dha tab PO DAILY 05/26/24 07/05/24 25 mg-epa 5 mg-fish oil chew tablet ( Gummies) Previous Rx's Medication Instructions Recorded azithromycin 250 mg tablet See Rx Instructions PO .COMPLEX #6 07/05/24 (Zithromax Z-Javier) tabs Allergies Allergy/AdvReac Type Severity Reaction Status Date / Time Penicillins Allergy vomitting, Verified 07/05/24 18:11 sweating Review of Systems 2 Musc: Reports: extremity pain Skin/Breast: Reports: other (burn to palm of L hand) Neuro: Denies: numbness in extremities PFSH ED 2 PFSH: Medical History No pertinent past medical history neghx: htn,dm,thyroid,dvt/pe,herpes ---denies partner with herpes PCP: none Surgical History No pertinent past surgical history Family History Grandmother Breast cancer Paternal--dx age unknown Denies family history of Colon cancer Ovarian cancer Diabetes Heart disease Hypercholesteremia Hypertension Uterine cancer Thyroid disease Stroke Social History Smoking and tobacco/nicotine status: tobacco/nicotine user, details unknown Substance/Drug Use: never Physical Exam 2 Const: COMMON NORMALS: no acute distress, average body habitus, patient oriented x3, no limitations, healthy appearing, alert and well nourished Extremity: COMMON NORMALS: full ROM and capillary refill normal GENERAL: Y es normal exam except as noted Hand Left Front: 1. 1st degree burn; small area of superficial second degree with ruptured blister mid palm surrounded by first degree; first degree to palmar finger 2. Neuro: COMMON NORMALS: patient oriented x3, moves all extremities, no focal motor deficits and no sensory deficits noted SENSORIUM/ORIENTATION: Yes alert Skin: NARRATIVE SKIN EXAM: see above Course 2 Vital Signs: Vital signs: Vital Signs Temperature 98.1 F 08/02/24 13:10 Pulse Rate 101 H 08/02/24 13:10 Respiratory Rate 18 08/02/24 13:10 Blood Pressure 118/75 08/02/24 13:10 Pulse Oximetry 97 08/02/24 13:10 Oxygen Delivery Me thod Room Air 08/02/24 13:10 MDM - Burn/Smoke Inhalation Medical Decision Making Discussed conservative therapies with cool water/cool rag, acetaminophen (pt so no NSAIDS), topical lidocaine, OTC antibiotic ointment, infection precautions. Medical Records I reviewed the patient's medical records. No radiology studies performed this visit Discharge Plan Discharge Patient Disposition: Home Clinical Impression: Burn of left hand Qualifiers: Encounter type: initial encounter Burn of hand location: palm Burn degree: s uperficial (1st degree) Qualified Code(s): T23.152A - Burn of first degree of left palm, initial encounter Condition: Stable Prescriptions: No Action azithromycin [Zithromax Z-Javier] 250 mg tablet See Rx Instructions PO .COMPLEX Qty: 6 0RF Rx Instructions: For 250 mg dose pack: take 500 mg today (day 1), then 250 mg for 4 days (days 2-5) PO Gummies 400 mcg-35 mg- 25 mg-5 mg tablet,chewable PO DAILY Discharge Orders: Discharge ED (Routine); Ordered 08/02/24 Ordered By: Valeria Lowery Patient Instructions: Superficial Burn (DC), Second-Degree Burn (ED) Coding Level of Care Code ED Butt Welder for Rhea Anaya
[2024-08-02 13:46] VITALS: BP 135/86; PULSE 101; RESP 16; O2SAT 97
== END 2024-08-02 13:47 | disposition home or self-care (01) ==
PROVIDERS: Emergency Provider Physician Assistant
DX: T23.152A Burn of first degree of left palm, initial encounter (principal); X19.XXXA Contact with other heat and hot substances, initial encounter; Z72.0 Tobacco use
CPT/HCPCS: 99281

== ENCOUNTER 2024-09-23 13:49 | Oncology outpatient (recurring) (ONCR) | payer BC, MEDICAID, SELFPAY ==
[2024-09-23] MEDS: rho(d) immune globulin 1,500 unit Syringe 1500 UNIT IM (15:05)
--- NOTE | 2024-09-23 15:11 | PC.NURSE ---
Patients blood type verified by Shaniqua Stein prior to administration. Pt verbalized her blood type as well as need for Rhogam injection.
[2024-09-23 15:12] VITALS: BP 112/77; PULSE 132; RESP 16; TEMP 36.9; O2SAT 98
== END 2024-10-15 23:59 | disposition home or self-care (01) ==
LOC: ONCMED 13:49
PROVIDERS: Visit Provider Family Medicine
DX: Z67.90 Unspecified blood type, Rh positive (principal); Z79.899 Other long term (current) drug therapy
CPT/HCPCS: 96401; J2790

== ENCOUNTER 2024-12-08 15:36 | Inpatient (IN) | payer BC, MEDICAID, SELFPAY ==
[2024-12-08] VITALS (29 sets, daily range): BP systolic 99–144; BP diastolic 55–87; PULSE 83–122; RESP 16–17; TEMP 35.9–36.8; O2SAT 98–100; BMI 36.6
[2024-12-08 13:22] LABS: Actim Prom Negative
[2024-12-08 14:57] LABS: Basophils % 0.2 %; Eosinophils % 0.1 %; Lymphocytes # 2.1 10^3/uL (0.8-4.8); Lymphocytes % 21.5 %; Mean Corpuscular HGB Conc 31.8 g/dL (30-55); Mean Corpuscular Hemoglobin 26.9 pg (27-33); Mean Corpuscular Volume 84.6 fl (85-98); Mean Platelet Volume 12.7 fL (7.4-10.4); Monocytes # 0.5 10^3/uL (0.2-0.9); Monocytes % 5.5 %; Neutrophils # 6.98 10^3/uL (1.8-7.7); Neutrophils % 72.3 %; Nucleated Red Blood Cells % 0 %; Platelet Count 149 10^3/cmm (157-399); Red Blood Count 4.49 10^6/uL (3.85-5.65); Red Cell Distribution Width 13.2 % (12.1-15.1); White Blood Count 9.66 10^3/uL (3.29-11.43)
--- NOTE | 2024-12-08 16:19 | PM.OPHPUD ---
Labor & Delivery H&P Update Date of Procedure: December 08, 2024 Date H&P Performed: 12/06/24 Changes to previous documentation: The patient cervix is now 6 cm dilated and about 80% effaced. Admission Diagnosis: 24-year-old 4 para 1-0-2-1 at 38 weeks and 6 days presenting with contractions, vaginal discharge and a cervix at 6 cm dilated, and changing. Planned procedure: Vaginal delivery Other information: The patient is a pleasant healthy female who presented to the hospital today because she was concerned that her water broke. She had been having's wet underwear consistently over the last 2 days. Upon arrival to hospital, nitrazine was inconclusive, and an active PROM was negative. Regardless she was noted to have some change in her cervix. Given the advanced age of her dilation as well as the favorability of her cervix, the other with her change, we elected to admit the patient for vaginal delivery. The patient's has been otherwise unremarkable. Her blood type is O-. Her antibody screen is negative. She is GBS negative. She is allergic to penicillin. Her glucose screen was negative. The remainder of her infectious disease profile is within normal limits. Related Problem List Diagnoses (1) 38 weeks gestation of : (2) Rh negative status during : A&P Assessment and plan (1) 38 weeks gestation of : We discussed options for ways we can move forward including Pitocin, amniotomy, or doing nothing. She chose to have an amniotomy performed. Status: Acute (2) Rh negative status during : Status: Acute PDMP PDMP Reviewed: Not Reviewed
[2024-12-08] MEDS: lactated ringers 1,000 ML 999 ML IV ×2 (17:12→18:29)
[2024-12-08] MEDS: ROPivacaine syringe 100 MG/50 ML SYRINGE 10 MG EPIDURAL (18:12)
--- NOTE | 2024-12-08 18:21 | ANES.PREANE2 ---
Pre-Anesthetic Assessment Height/Weight: Height 1.65 m Weight 99.79 kg Temp Pulse Resp BP Pulse Ox O2 Del Method 96.8 F L 110 H 17 99/67 100 Room Air 12/08/24 17:17 12/08/24 18:13 12/08/24 14:37 12/08/24 18:13 12/08/24 18:13 12/08/24 15:25 Preop Diagnosis: intrauterine Epidural Familial anesthetic complications: none Was Beta Karrie taken within 24 hours: N/A Was Clonidine taken within 24 hours: N/A Last Intake: 08:00 Social No alcohol and No tobacco Exam alert, oriented x 3, clear to auscultation bilaterally and regular rate & rhythm Airway Mallampati: Class III History/ROS No significant history except as noted Pulmonary None reported CV/HEM None reported None reported Hepatic None reported GI None reported Metabolic None reported Musc/skel None reported Neuropsych None reported Anesthetic Plan ASA status: 2 Anesthesia: Regional (specify below) (Epidural) Risk of > 500 ml blood loss (7ml/kg in children): No Medications/Allergies Home Medications ?Medication ?Instructions ?Recorded ?Confirmed ?Last Taken ?Type PNV 153-FA 400 mcg-om3 35 mg-dha 1 tab PO DAILY 05/26/24 12/08/24 Unknown History 25 mg-epa 5 mg-fish oil chew tablet ( Gummies) Allergies Allergy/AdvReac Type Severity Reaction Status Date / Time Penicillins Allergy vomitting, Verified 12/01/24 08:52 sweating Current Medications Generic Name Dose Route Start Last Admin Trade Name Freq PRN Reason Stop Dose Admin Lactated Ringer's 1,000 mls @ 999 mls/hr 12/08/24 17:04 12/08/24 17:12 Lactated Ringers IV 999 mls/hr .Q1H1M PRN Administration See label comments PFSH Anesthesia Medical History No pertinent past medical history neghx: htn,dm,thyroid,dvt/pe,herpes ---denies partner with herpes PCP: none Surgical History No pertinent past surgical history Family History Grandmother Breast cancer Paternal--dx age unknown Denies family history of Colon cancer Ovarian cancer Diabetes Heart disease Hypercholesteremia Hypertension Uterine cancer Thyroid disease Stroke Social History Smoking and tobacco/nicotine status: tobacco/nicotine user, details unknown Substance/Drug Use: never Female Reproductive History : 4 Data Anesthesia 12/08/24 14:45 Short CBC 12/08/24 Range/Units 14:45 WBC 9.66 (3.29-11.43) 10^3/uL Hgb 12.10 (11.27-16.99) g/dL Hct 38.0 (36-47) % MCV 84.6 L (85-98) fl Plt Count 149 L (157-399) 10^3/cmm Neut % (Auto) 72.3 % Neut # (Auto) 6.98 (1.8-7.7) 10^3/uL Blood Bank 12/08/24 14:45 Blood Type O Negative Rho(D) Type Rh negative Antibody Screen Negative Cardiac Studies: No Data to Display Anesthesia Procedures Epidural Time Out Performed: Yes Consents Signed: Procedure Consent Consent: from patient, risks and benefits reviewed and patient agrees to proceed Lumbar Level: L3-L4 Epidural position: sitting Epidural procedure: sterile prep of area, 1% lidocaine to numb the area, 18 g needle, negative for paresthesia passed, neg for paresthesia, test dose given, 1.5% xylocaine 1:200k epi (5ML), 0.2% Ropivacaine bolus ml (6mL), placed PCEA, no systemic response, sterile dressing applied, L.U.D. no apparent complications and 0.2% Ropiavacaine @ mls/hr (10) Additional Comments: SANDIE 6cm
[2024-12-08] MEDS: oxytocin 30 UNIT/500 ML BAG 600 UNIT IV (18:24)
--- NOTE | 2024-12-08 18:48 | PM.DELIVERY ---
Delivery Note: Date of delivery: December 08, 2024 Pre-delivery diagnoses: 24-year-old 4 para 1-0-2-1 at 38 weeks estimated gestational age presenting in active labor Post-delivery diagnoses: Status post spontaneous vaginal delivery Procedure: Spontaneous vaginal delivery Delivering Physician: Elton Singh Estimated blood loss (mL): 75 Pre-Delivery Course: The patient presented to the hospital at 6 cm dilated and making cervical change. An amniotomy was performed. An epidural was attempted just prior to delivery. Delivery: DELIVERY: The patient progressed to complete without difficulty. She delivered a male with a weight of 8 pounds 14 ounces with Apgars of 8, 9. The baby was delivered from the LIA position and placed on the mother's abdomen. The cord was then clamped and cut. There was no nuchal cord. There was no meconium. The placenta and 3 vessel cord were delivered intact shortly thereafter. The perineum and vaginal vault were carefully examined. A single laceration was noted on the left anterior labia minora. It was not bleeding and no repair was required. Both the mother and the baby were in stable condition. Post-Delivery Status: Good History History History 4 Term 1 0 Miscarriages/Ectopic 2 Living Children 1 A&P Assessment and plan (1) Spontaneous vaginal delivery: I anticipate routine care. (2) 38 weeks gestation of : PDMP PDMP Reviewed: Not Reviewed Coding Level of Care Code Acute Code for Chg Fwd Diagnoses Spontaneous vaginal delivery O80 38 weeks gestation of Z3A.38
[2024-12-08] MEDS: ibuprofen 800 mg tablet PO (22:18)
[2024-12-08] MEDS: benzocaine-menthol 78 gm Canister 1 SPRAY TOPICAL (22:19)
[2024-12-09 00:15] VITALS: BP 128/72; PULSE 87; RESP 16; TEMP 36.7; O2SAT 100
[2024-12-09 02:50] VITALS: BP 116/75; PULSE 89; RESP 16; TEMP 36.8; O2SAT 98
[2024-12-09 07:03] LABS: Hematocrit 33.7 % (36-47); Mean Corpuscular HGB Conc 32.3 g/dL (30-55); Mean Corpuscular Hemoglobin 27.4 pg (27-33); Mean Corpuscular Volume 84.7 fl (85-98); Mean Platelet Volume 12.4 fL (7.4-10.4); Platelet Count 113 10^3/cmm (157-399); Red Blood Count 3.98 10^6/uL (3.85-5.65); Red Cell Distribution Width 13.2 % (12.1-15.1); White Blood Count 11.19 10^3/uL (3.29-11.43)
--- NOTE | 2024-12-09 08:16 | ANE.PACU2 ---
Inpatient post-anesthesia follow up: Airway intact: Yes Vital signs: Temperature 98.3 F Pulse Rate 89 Respiratory Rate 16 Blood Pressure 116/75 Pulse Oximetry 98 Oxygen Delivery Me thod Room Air Oxygen Flow Rate Fraction of Inspir ed Oxygen Hydration adequate: Yes Nausea and vomiting: No Pain level: 1 Mental status: Baseline Epidural Start/End: Epidural Start Date: 12/08/24 Epidural Start Time: 17:54 Epidural End Date: 12/08/24 Epidural End Time: 18:58
[2024-12-09] MEDS: ibuprofen 800 mg tablet PO ×2 (09:32→17:12)
[2024-12-09] MEDS: PRENATAL VIT NO.130/IRON/FOLIC 1 EACH TABLET PO (09:32)
[2024-12-09] MEDS: docusate sodium 100 mg Capsule PO ×2 (09:33→17:13)
[2024-12-09 10:00] VITALS: BP 111/70; PULSE 103; RESP 18; TEMP 36.3
--- NOTE | 2024-12-09 12:00 | PM.OBGYDC ---
Discharge Providers FILM EDITOR Date of Admission: 12/08/24 15:36 Date of Discharge: 12/09/24 Attending Provider at Admission: Elton Singh MD Attending Provider at Discharge: Elton Singh MD Diagnoses at Discharge Discharge Diagnosis (1) Spontaneous vaginal delivery: Status: Acute (2) 38 weeks gestation of : Status: Acute Reason for Visit Reason for Visit: poss SROM Hospital Course Hospital Course The patient presented to the hospital in active labor. An amniotomy was performed. She progressed to complete and had an unremarkable delivery of a healthy appearing male infant. She had a single labia minora tear on her left side. She breast-fed well. Her bleeding was within normal limits. Her pain is been well-controlled. There have been no concerns. Information Peripartum Data: Delivery Method: Vaginal Physical Exam Narrative: The patient is alert. She appears comfortable. Her heart has a regular rate and rhythm with no murmurs appreciated. Lungs are clear to auscultation bilaterally. Her fundus is firm and below the umbilicus. History History History 4 Term 1 0 Miscarriages/Ectopic 2 Living Children 1 Discharge Data Studies Completed and Pending Laboratory Results WBC 11.19 10^3/uL (3.29-11.43) 12/09/24 06:58 RBC 3.98 10^6/uL (3.85-5.65) 12/09/24 06:58 Hgb 10.90 g/dL (11.27-16.99) L 12/09/24 06:58 Hct 33.7 % (36-47) L 12/09/24 06:58 MCV 84.7 fl (85-98) L 12/09/24 06:58 MCH 27.4 pg (27-33) 12/09/24 06:58 MCHC 32.3 g/dL (30-55) 12/09/24 06:58 RDW 13.2 % (12.1-15.1) 12/09/24 06:58 Plt Count 113 10^3/cmm (157-399) L 12/09/24 06:58 MPV 12.4 fL (7.4-10.4) H 12/09/24 06:58 Neut % (Auto) 72.3 % 12/08/24 14:45 Lymph % (Auto) 21.5 % 12/08/24 14:45 [place] % (Auto) 5.5 % 12/08/24 14:45 Eos % (Auto) 0.1 % 12/08/24 14:45 Baso % (Auto) 0.2 % 12/08/24 14:45 Neut # (Auto) 6.98 10^3/uL (1.8-7.7) 12/08/24 14:45 Lymph # (Auto) 2.1 10^3/uL (0.8-4.8) 12/08/24 14:45 [place] # (Auto) 0.5 10^3/uL (0.2-0.9) 12/08/24 14:45 Eos # (Auto) 0.0 10^3/uL (0.0-0.8) 12/08/24 14:45 Baso # (Auto) 0.0 10^3/uL (0.0-0.1) 12/08/24 14:45 Nucleated RBC % (auto) 0 % 12/08/24 14:45 Nucleated RBCs # 0.0 /100WBC 12/08/24 14:45 Insulin-like GF I Negative 12/08/24 13:10 Blood Type O Negative 12/08/24 14:45 Rho(D) Type Rh negative 12/08/24 14:45 Antibody Screen Negative 12/08/24 14:45 Vitals Last Vital Signs Temp 97.4 F L 12/09/24 10:00 Pulse 103 H 12/09/24 10:00 Resp 18 12/09/24 10:00 BP 111/70 12/09/24 10:00 Pulse Ox 98 12/09/24 02:50 O2 Del Method Room Air 12/09/24 02:50 Results Labs OB ([facility]): Obstetrics US 09/21/24 Blood Type O Negative 12/08/24 Antibody Screen Negative 12/08/24 Hct 33.7 % (36-47) L 12/09/24 Hgb 10.90 g/dL (11.27-16.99) L 12/09/24 Rho(D) Type Rh negative 12/08/24 Plt Count 113 10^3/cmm (157-399) L 12/09/24 Hep Bs Antigen Non-reactive (Nonreactive) 05/26/24 Hepatitis C Antibody Non-reactive (Nonreactive) 05/26/24 Rubella IgG Antibody 63.8 IU/mL (0.0-10.0) H 05/26/24 RPR Nonreactive (Nonreactive) 05/26/24 HIV 1&2 Ab & HIV 1 Ag Non-reactive (Non-Reactiv) 05/26/24 TSH 2.21 uIU/mL (0.27-4.20) 05/26/24 Free T4 0.97 ng/dL (0.82-1.77) 05/26/24 C.trachomatis RNA (TMA) Not detected (NOT DETECTED) 05/26/24 N.gonorrhoeae RNA (TMA) Not detected (NOT DETECTED) 05/26/24 T. vaginalis Amp RNA Not detected (NOT DETECTED) 05/26/24 Chlamydia/GC Comment See note 05/26/24 Ser , Semi-Qnt 56038.00 mIU/mL 04/20/24 HCG, Qual Positive (Negative) H 04/20/24 Urine Opiates Screen Negative ng/mL (Negative) 05/26/24 Ur Barbiturates Screen Negative ng/mL (Negative) 05/26/24 Ur Phencyclidine Scrn Negative ng/mL (Negative) 05/26/24 Ur Amphetamines Screen Negative ng/mL (Negative) 05/26/24 U Benzodiazepines Scrn Negative ng/mL (Negative) 05/26/24 Urine Cocaine Screen Negative ng/mL (Negative) 05/26/24 U Marijuana (THC) Screen Positive ng/mL (Negative) H 05/26/24 Micro Urine Specimen 05/26/24 Pap Smear Interpret See note 06/08/24 Discharge Plan Discharge Patient Disposition: Home Condition: Stable Prescriptions: New ibuprofen 800 mg Tablet 800 mg PO TID Qty: 45 0RF Continued Gummies 400 mcg-35 mg- 25 mg-5 mg tablet,chewable 1 tab PO DAILY Discharge Orders: Discharge Order (Routine); Ordered 12/09/24 Ordered By: Elton Singh Referrals: Elton Singh MD [Physician] - 6 Weeks Discharge Diet: Usual diet Discharge Activity: Limit activity as instructed Patient Instructions: Opioid Safety Discharge Attestations FILM EDITOR Time Spent in Discharge Care*: less than 30 min Coding Level of Care Code Acute Code for Chg Fwd Diagnoses Spontaneous vaginal delivery O80 38 weeks gestation of Z3A.38
[2024-12-09 15:00] VITALS: BP 122/75; PULSE 108; RESP 18; TEMP 36.7
[2024-12-09 19:00] VITALS: BP 132/82; PULSE 103; RESP 16; TEMP 36.7; O2SAT 98
== END 2024-12-09 19:10 | disposition home or self-care (01) | DRG 807 ==
LOC: OPOB 15:37 → OBGYN 15:37
PROVIDERS: Admitting Provider Family Medicine; Visit Provider Family Medicine
DX: O80 Encounter for full-term uncomplicated delivery (principal); Z37.0 Single live birth; Z3A.38 38 weeks gestation of pregnancy
CPT/HCPCS: 36415; 59025; 59409; 83986; 84112; 85025; 85027; 86850; 86900; 99211; J2590; J2795; J7120; J9999

== ENCOUNTER 2025-03-18 05:13 | Emergency (ER) | payer BC, MEDICAID, SELFPAY ==
[2025-03-18 05:23] VITALS: BP 143/81; PULSE 77; RESP 16; TEMP 36.6; O2SAT 99
--- NOTE | 2025-03-18 05:31 | USR_ITS ---
PROCEDURE INFORMATION: Exam: US Pelvis, Transvaginal, Non-Obstetric Exam date and time: 03/18/2025 6:37 AM Age: 24 years old Clinical indication: Other: Bleeding post 3 months; Additional info: Dub TECHNIQUE: Imaging protocol: Real-time transvaginal pelvic (non-obstetric) ultrasound with image documentation. Transvaginal imaging was used for better evaluation of the endometrium, adnexa, and/or cervix. COMPARISON: US OB >= 14 weeks fetus [id number] 08/02/2024 8:10 AM FINDINGS: Uterus: Uterus is normal. Endometrial stripe is normal. No evidence of retained products of conception. Right ovary/adnexa: Normal. No mass. Normal ovarian blood flow on color Doppler. Left ovary/adnexa: Normal. No mass. Normal ovarian blood flow on color Doppler. Urinary bladder: Urinary bladder is limited. Intraperitoneal space: No free fluid. US/US transvaginal [id number] IMPRESSION: The findings are normal.
--- NOTE | 2025-03-18 05:35 | W.ED.FEMALGU ---
Documented by User: Delmer Oshea MD 03/18/25 05:37 HPI - Female Genitourinary General: Chief complaint: Urogenital-Female Stated complaint: post delivery 3 Months heavy bleeding still Time Seen by Provider: 03/18/25 05:15 History of Present Illness: 24-year-old female who is 3 months who presents emerged part with complaint of lower abdominal cramping and pain and vaginal bleeding. Patient states that she has been having vaginal bleeding for the past 3 months ever since she had her baby. She states that she did see her [employer] today and had a pelvic exam and this did not show anything abnormal so an ultrasound was scheduled for later in the month but the pain and bleeding became so bad this morning that she decided to come into the ER. She states she did have dysmenorrhea prior to her first . Related Data Home Medications ?Medication ?Instructions ?Recorded ?Confirmed PNV 153-FA 400 mcg-om3 35 mg-dha 1 tab PO DAILY 05/26/24 03/18/25 25 mg-epa 5 mg-fish oil chew tablet ( Gummies) Allergies Allergy/AdvReac Type Severity Reaction Status Date / Time Penicillins Allergy vomitting, Verified 12/01/24 08:52 sweating PFSH ED PFSH: Medical History No pertinent past medical history neghx: htn,dm,thyroid,dvt/pe,herpes ---denies partner with herpes PCP: none Surgical History No pertinent past surgical history Family History Grandmother Breast cancer Paternal--dx age unknown Denies family history of Colon cancer Ovarian cancer Diabetes Heart disease Hypercholesteremia Hypertension Uterine cancer Thyroid disease Stroke Social History Smoking and tobacco/nicotine status: tobacco/nicotine user, details unknown Substance/Drug Use: never Physical Exam Neck/C-Spine: COMMON NORMALS: no JVD Resp: COMMON NORMALS: normal respiratory effort, No retractions, No use of accessory muscles, clear to auscultation bilaterally and percussion normal AUSCULTATION: clear to auscultation bilaterally PERCUSSION: percussion normal Cardio: COMMON NORMALS: no JVD, regular rate, regular rhythm, S1 normal heart sound present, S2 normal heart sound present, No gallops present (Cardio), No clicks present (Cardio), No murmurs present (Cardio), No rub (Cardio) and Peripheral pulses 2+ throughout RATE: regular rate RHYTHM: regular rhythm HEART SOUNDS: S1 normal heart sound present and S2 normal heart sound present PERIPHERAL PULSES: Peripheral pulses 2+ throughout GI: OTHER: Diffuse lower abdominal tenderness Course Vital Signs: Vital signs: Vital Signs Temperature 97.9 F 03/18/25 05:23 Pulse Rate 87 03/18/25 09:09 Respiratory Rate 17 03/18/25 05:59 Blood Pressure 103/88 03/18/25 09:09 Pulse Oximetry 97 03/18/25 09:09 Oxygen Delivery Me thod Room Air 03/18/25 05:23 MDM - Female Lab Data 03/18/25 05:36 03/18/25 05:36 Radiology Impressions Transvaginal US 03/18/25 05:31 IMPRESSION: The findings are normal. Laboratory Results WBC 4.27 10^3/uL (3.29-11.43) 03/18/25 05:36 RBC 4.76 10^6/uL (3.85-5.65) 03/18/25 05:36 Hgb 13.30 g/dL (11.27-16.99) 03/18/25 05:36 Hct 40.7 % (36-47) 03/18/25 05:36 MCV 85.5 fl (85-98) 03/18/25 05:36 MCH 27.9 pg (27-33) 03/18/25 05:36 MCHC 32.7 g/dL (30-55) 03/18/25 05:36 RDW 13.1 % (12.1-15.1) 03/18/25 05:36 Plt Count 138 10^3/cmm (157-399) L 03/18/25 05:36 MPV 11.5 fL (7.4-10.4) H 03/18/25 05:36 Neut % (Auto) 49.4 % 03/18/25 05:36 Lymph % (Auto) 40.5 % 03/18/25 05:36 Elmore % (Auto) 8.7 % 03/18/25 05:36 Eos % (Auto) 0.7 % 03/18/25 05:36 Baso % (Auto) 0.5 % 03/18/25 05:36 Neut # (Auto) 2.11 10^3/uL (1.8-7.7) 03/18/25 05:36 Lymph # (Auto) 1.7 10^3/uL (0.8-4.8) 03/18/25 05:36 Elmore # (Auto) 0.4 10^3/uL (0.2-0.9) 03/18/25 05:36 Eos # (Auto) 0.0 10^3/uL (0.0-0.8) 03/18/25 05:36 Baso # (Auto) 0.0 10^3/uL (0.0-0.1) 03/18/25 05:36 Nucleated RBC % (auto) 0 % 03/18/25 05:36 Nucleated RBCs # 0.0 /100WBC 03/18/25 05:36 Sodium 139 mmol/L (136-145) 03/18/25 05:36 Potassium 4.0 mmol/L (3.5-5.1) 03/18/25 05:36 Chloride 105 mmol/L (98-107) 03/18/25 05:36 Carbon Dioxide 23 mmol/L (22-29) 03/18/25 05:36 Anion Gap 15.0 (5-19) 03/18/25 05:36 BUN 20 mg/dL (6-20) 03/18/25 05:36 Creatinine 0.7 mg/dL (0.5-0.9) 03/18/25 05:36 GFR Calculation 102.8 mL/min (90-130) 03/18/25 05:36 Glucose 95 mg/dL (65-115) 03/18/25 05:36 Calculated Osmolality 290 mOsm/kg (285-295) 03/18/25 05:36 Calcium 9.0 mg/dL (8.5-10.5) 03/18/25 05:36 Total Bilirubin 0.5 mg/dL (0.15-1.2) 03/18/25 05:36 AST 35 U/L (0-32) H 03/18/25 05:36 ALT 23 U/L (0-33) 03/18/25 05:36 Alkaline Phosphatase 91 U/L (35-105) 03/18/25 05:36 Total Protein 7.3 g/dL (6.6-8.7) 03/18/25 05:36 Albumin 4.3 g/dL (3.5-5.2) 03/18/25 05:36 Globulin 3.0 g/dL (1.3-4.6) 03/18/25 05:36 HCG, Qual Negative (Negative) 03/18/25 05:59 Urine Color Yellow (Yellow) 03/18/25 05:59 Urine Appearance Cloudy (CLEAR) A 03/18/25 05:59 Urine pH 5.5 (5-7) 03/18/25 05:59 Ur Specific Ferdinand 1.033 (1.005-1.030) H 03/18/25 05:59 Urine Protein 1+ (Negative) A 03/18/25 05:59 Urine Glucose (UA) Negative (Normal) 03/18/25 05:59 Urine Ketones Trace (Negative) 03/18/25 05:59 Urine Blood 3+ (Negative) A 03/18/25 05:59 Urine Nitrate Negative (Negative) 03/18/25 05:59 Urine Bilirubin Negative (Negative) 03/18/25 05:59 Urine Urobilinogen 1.0 mg/dL (Negative) 03/18/25 05:59 Ur Leukocyte Esterase 1+ (Negative) A 03/18/25 05:59 Urine RBC 51-100 /hpf (0-2) H 03/18/25 05:59 Urine WBC 21-50 /hpf (0-5) H 03/18/25 05:59 Ur Squamous Epith Cells 11-20 /hpf (0-5) H 03/18/25 05:59 Amorphous Sediment Not Reportable 03/18/25 05:59 Urine Bacteria Trace /hpf (NONE) 03/18/25 05:59 Hyaline Casts 0.40 /lpf 03/18/25 05:59 Discharge Plan Discharge Patient Disposition: Home Clinical Impression: Menometrorrhagia Condition: Stable Prescriptions: No Action Gummies 400 mcg-35 mg- 25 mg-5 mg tablet,chewable 1 tab PO DAILY Discharge Orders: Discharge ED (Routine); Ordered 03/18/25 Ordered By: Karan Bull Discharge Diet: Usual diet Discharge Activity: Resume usual activity Patient Instructions: Opioid Safety, Pain Management, Patient Portal & Deon Instructions Activity Restrictions/Additional Instructions: Thank you for choosing [facility] for your healthcare needs today. It is very important that you follow up as instructed or that you return to the Emergency Department should you have concerns or if your condition changes or worsens in any way. You were seen in the emergency room with complaints of persistent vaginal bleeding. Your hemoglobin is stable at 13.3, other lab work did not show any clinically significant abnormalities. Ultrasound did not show any significant abnormalities either. We discussed different treatment options you opted to wait until the new control that your prior doctor had sent in arrives at the pharmacy. Recommend further follow-up with your primary care doctor or vp respiratory. Print Language: Pashto Sign Out Sign Out Data: Patient Sign Out occurred on 03/18/25 at 06:15. Patient's care was discussed, and care was transferred from Delmer Oshea MD to Karan Bull DO. Coding Level of Care Code ED Videotape Recording Engineer for Chg Fwd Documented by User: Karan Bull DO 03/18/25 17:38 HPI - Female Genitourinary General: Chief complaint: Urogenital-Female Stated complaint: post delivery 3 Months heavy bleeding still Time Seen by Provider: 03/18/25 05:15 Related Data Home Medications ?Medication ?Instructions ?Recorded ?Confirmed PNV 153-FA 400 mcg-om3 35 mg-dha 1 tab PO DAILY 05/26/24 03/18/25 25 mg-epa 5 mg-fish oil chew tablet ( Gummies) Allergies Allergy/AdvReac Type Severity Reaction Status Date / Time Penicillins Allergy vomitting, Verified 12/01/24 08:52 sweating PFSH ED PFSH: Medical History No pertinent past medical history neghx: htn,dm,thyroid,dvt/pe,herpes ---denies partner with herpes PCP: none Surgical History No pertinent past surgical history Family History Grandmother Breast cancer Paternal--dx age unknown Denies family history of Colon cancer Ovarian cancer Diabetes Heart disease Hypercholesteremia Hypertension Uterine cancer Thyroid disease Stroke Social History Smoking and tobacco/nicotine status: tobacco/nicotine user, details unknown Substance/Drug Use: never Course Vital Signs: Vital signs: Vital Signs Temperature 97.9 F 03/18/25 05:23 Pulse Rate 87 03/18/25 09:09 Respiratory Rate 17 03/18/25 05:59 Blood Pressure 103/88 03/18/25 09:09 Pulse Oximetry 97 03/18/25 09:09 Oxygen Delivery Me thod Room Air 03/18/25 05:23 MDM - Female Medical Decision Making CT the pelvis is unremarkable. Discussed the results with the patient her hemoglobin is stable. She has a couple different treatment options at this point we can continue on her current course and changed to oral contraceptive her doctor called in for her next week when the pharmacy gets it the other option be to do a progesterone withdrawal bleed. After discussion of the patient she opted to wait until the new prescription came into the pharmacy. Patient's not having significant bleeding now or she is otherwise stable will discharge home follow-up with her primary care or vp respiratory. Lab Data 03/18/25 05:36 03/18/25 05:36 Radiology Impressions Transvaginal US 03/18/25 05:31 IMPRESSION: The findings are normal. Laboratory Results WBC 4.27 10^3/uL (3.29-11.43) 03/18/25 05:36 RBC 4.76 10^6/uL (3.85-5.65) 03/18/25 05:36 Hgb 13.30 g/dL (11.27-16.99) 03/18/25 05:36 Hct 40.7 % (36-47) 03/18/25 05:36 MCV 85.5 fl (85-98) 03/18/25 05:36 MCH 27.9 pg (27-33) 03/18/25 05:36 MCHC 32.7 g/dL (30-55) 03/18/25 05:36 RDW 13.1 % (12.1-15.1) 03/18/25 05:36 Plt Count 138 10^3/cmm (157-399) L 03/18/25 05:36 MPV 11.5 fL (7.4-10.4) H 03/18/25 05:36 Neut % (Auto) 49.4 % 03/18/25 05:36 Lymph % (Auto) 40.5 % 03/18/25 05:36 Elmore % (Auto) 8.7 % 03/18/25 05:36 Eos % (Auto) 0.7 % 03/18/25 05:36 Baso % (Auto) 0.5 % 03/18/25 05:36 Neut # (Auto) 2.11 10^3/uL (1.8-7.7) 03/18/25 05:36 Lymph # (Auto) 1.7 10^3/uL (0.8-4.8) 03/18/25 05:36 Elmore # (Auto) 0.4 10^3/uL (0.2-0.9) 03/18/25 05:36 Eos # (Auto) 0.0 10^3/uL (0.0-0.8) 03/18/25 05:36 Baso # (Auto) 0.0 10^3/uL (0.0-0.1) 03/18/25 05:36 Nucleated RBC % (auto) 0 % 03/18/25 05:36 Nucleated RBCs # 0.0 /100WBC 03/18/25 05:36 Sodium 139 mmol/L (136-145) 03/18/25 05:36 Potassium 4.0 mmol/L (3.5-5.1) 03/18/25 05:36 Chloride 105 mmol/L (98-107) 03/18/25 05:36 Carbon Dioxide 23 mmol/L (22-29) 03/18/25 05:36 Anion Gap 15.0 (5-19) 03/18/25 05:36 BUN 20 mg/dL (6-20) 03/18/25 05:36 Creatinine 0.7 mg/dL (0.5-0.9) 03/18/25 05:36 GFR Calculation 102.8 mL/min (90-130) 03/18/25 05:36 Glucose 95 mg/dL (65-115) 03/18/25 05:36 Calculated Osmolality 290 mOsm/kg (285-295) 03/18/25 05:36 Calcium 9.0 mg/dL (8.5-10.5) 03/18/25 05:36 Total Bilirubin 0.5 mg/dL (0.15-1.2) 03/18/25 05:36 AST 35 U/L (0-32) H 03/18/25 05:36 ALT 23 U/L (0-33) 03/18/25 05:36 Alkaline Phosphatase 91 U/L (35-105) 03/18/25 05:36 Total Protein 7.3 g/dL (6.6-8.7) 03/18/25 05:36 Albumin 4.3 g/dL (3.5-5.2) 03/18/25 05:36 Globulin 3.0 g/dL (1.3-4.6) 03/18/25 05:36 HCG, Qual Negative (Negative) 03/18/25 05:59 Urine Color Yellow (Yellow) 03/18/25 05:59 Urine Appearance Cloudy (CLEAR) A 03/18/25 05:59 Urine pH 5.5 (5-7) 03/18/25 05:59 Ur Specific Ferdinand 1.033 (1.005-1.030) H 03/18/25 05:59 Urine Protein 1+ (Negative) A 03/18/25 05:59 Urine Glucose (UA) Negative (Normal) 03/18/25 05:59 Urine Ketones Trace (Negative) 03/18/25 05:59 Urine Blood 3+ (Negative) A 03/18/25 05:59 Urine Nitrate Negative (Negative) 03/18/25 05:59 Urine Bilirubin Negative (Negative) 03/18/25 05:59 Urine Urobilinogen 1.0 mg/dL (Negative) 03/18/25 05:59 Ur Leukocyte Esterase 1+ (Negative) A 03/18/25 05:59 Urine RBC 51-100 /hpf (0-2) H 03/18/25 05:59 Urine WBC 21-50 /hpf (0-5) H 03/18/25 05:59 Ur Squamous Epith Cells 11-20 /hpf (0-5) H 03/18/25 05:59 Amorphous Sediment Not Reportable 03/18/25 05:59 Urine Bacteria Trace /hpf (NONE) 03/18/25 05:59 Hyaline Casts 0.40 /lpf 03/18/25 05:59 All radiology interpretation(s) finalized by discharge Discharge Plan Discharge Patient Disposition: Home Clinical Impression: Menometrorrhagia Condition: Stable Prescriptions: No Action Gummies 400 mcg-35 mg- 25 mg-5 mg tablet,chewable 1 tab PO DAILY Discharge Orders: Discharge ED (Routine); Ordered 03/18/25 Ordered By: Karan Bull Discharge Diet: Usual diet Discharge Activity: Resume usual activity Patient Instructions: Opioid Safety, Pain Management, Patient Portal & Deon Instructions Activity Restrictions/Additional Instructions: Thank you for choosing [facility] for your healthcare needs today. It is very important that you follow up as instructed or that you return to the Emergency Department should you have concerns or if your condition changes or worsens in any way. You were seen in the emergency room with complaints of persistent vaginal bleeding. Your hemoglobin is stable at 13.3, other lab work did not show any clinically significant abnormalities. Ultrasound did not show any significant abnormalities either. We discussed different treatment options you opted to wait until the new control that your prior doctor had sent in arrives at the pharmacy. Recommend further follow-up with your primary care doctor or vp respiratory. Print Language: Pashto Sign Out Sign Out Data: Patient Sign Out occurred on 03/18/25 at 06:15. Patient's care was discussed, and care was transferred from Delmer Oshea MD to Karan Bull DO. Coding Level of Care Code ED Videotape Recording Engineer for Rhea Anaya
[2025-03-18 05:45] LABS: Hematocrit 40.7 % (36-47); Hemoglobin 13.30 g/dL (11.27-16.99); Mean Corpuscular HGB Conc 32.7 g/dL (30-55); Mean Corpuscular Hemoglobin 27.9 pg (27-33); Mean Corpuscular Volume 85.5 fl (85-98); Nucleated Red Blood Cells % 0 %; Platelet Count 138 10^3/cmm (157-399); Red Blood Count 4.76 10^6/uL (3.85-5.65); White Blood Count 4.27 10^3/uL (3.29-11.43)
[2025-03-18 05:59] VITALS: BP 143/81; PULSE 90; RESP 17; O2SAT 99
[2025-03-18 05:59] LABS: Alanine Aminotransferase 23 U/L (0-33); Albumin Level 4.3 g/dL (3.5-5.2); Alkaline Phosphatase 91 U/L (35-105); Anion Gap 15.0 (5-19); Aspartate Amino Transferase 35 U/L (0-32); Blood Urea Nitrogen 20 mg/dL (6-20); Calcium 9.0 mg/dL (8.5-10.5); Carbon Dioxide 23 mmol/L (22-29); Chloride 105 mmol/L (98-107); Creatinine Clr Calc Pharmacy 141.4472; Globulin 3.0 g/dL (1.3-4.6); Glucose 95 mg/dL (65-115); Osmolality Calculated 290 mOsm/kg (285-295); Potassium 4.0 mmol/L (3.5-5.1); Sodium 139 mmol/L (136-145); Total Protein 7.3 g/dL (6.6-8.7)
[2025-03-18 06:03] LABS: HCG Qualitative Urine. Negative (Negative)
[2025-03-18 06:04] LABS: Glucose Urine UA Negative (Normal); Nitrate Urine Negative (Negative)
[2025-03-18 06:09] LABS: Add Urine Microscopic? YES
[2025-03-18 06:19] LABS: Specific Gravity, Urine 1.033 (1.005-1.030)
[2025-03-18 07:48] VITALS: BP 103/88; PULSE 88; O2SAT 98
[2025-03-18 09:09] VITALS: BP 103/88; PULSE 87; O2SAT 97
== END 2025-03-18 09:22 | disposition home or self-care (01) ==
PROVIDERS: Emergency Medicine; Emergency Provider Family Medicine
DX: N92.1 Excessive and frequent menstruation with irregular cycle (principal)
CPT/HCPCS: 36415; 76830; 80053; 81001; 81025; 85025; 96374; 99284; J1885